=== PATIENT | female | born 1990 | race Asian ===

== ENCOUNTER 2016-09-29 01:15 | Emergency (ER) | payer SELFPAY ==
[~2016-09-29] VITALS: Ht 157.5 cm; Wt 56.0 kg
[2016-09-29 01:29] VITALS: BP 103/73
[2016-09-29] MEDS ORDERED: DIPHENHYDRAMINE 50MG CAPSULE PO ONE (03:45)
== END 2016-09-29 04:28 | disposition home or self-care (01) ==
LOC: ER 01:16
DX: T78.1XXA Other adverse food reactions, not elsewhere classified, initial encounter (principal); F41.9 Anxiety disorder, unspecified; J45.909 Unspecified asthma, uncomplicated; X58.XXXA Exposure to other specified factors, initial encounter
CPT/HCPCS: 99283; Q0163